=== PATIENT | male | born 1975 | race Caucasian/White ===

== ENCOUNTER 2025-05-19 05:08 | Inpatient (IN) | payer OTHER ==
[~2025-05-19] VITALS: Ht 185.4 cm; Wt 72.7 kg
[2025-05-19 06:19] LABS: PLATELET COUNT (AUTO) 191 K/uL (150-450); RED BLOOD CELL COUNT(AUTO) 3.61 MIL/uL (4.50-5.90); RED CELL DISTRIBUTION WIDTH 17.4 % (11.5-14.5); WHITE BLOOD COUNT (AUTO) 6.0 K/uL (4.5-11.0)
[2025-05-19] MEDS ORDERED: 0.9% SODIUM CHLORIDE 10 ML SYRINGE IVP PRN (06:30)
[2025-05-19] MEDS ORDERED: IOHEXOL 300 MG/ML 100 ML VIAL ONE (06:36)
[2025-05-19] MEDS ORDERED: SODIUM CHLORIDE 0.9% 0 ML ONE (06:36)
[2025-05-19 06:48] LABS: TROPONIN I-HIGH SENSITIVITY 5 ng/L (<76)
[2025-05-19 06:53] LABS: CALCIUM, TOTAL 8.7 mg/dL (8.8-10.5); CREATININE 0.85 mg/dL (0.60-1.30); GLOMERULAR FILTR. RATE CALC > 60 mL/min (>60); GLUCOSE,RANDOM 90 mg/dL (70-110); SODIUM SERUM 139 mmol/L (136-145); UREA NITROGEN, BLOOD 4 mg/dL (7-18)
[2025-05-19 07:00] LABS: ASPARTATE AMINOTRANSFERASE 61.0 U/L (15-37); TOTAL PROTEIN, SERUM 6.9 g/dL (6.4-8.2)
[2025-05-19] MEDS: CefTRIAXone 1 GM/DEXTROSE 50 ML IV ONE (07:09)
[2025-05-19] MEDS: SODIUM CHLORIDE 0.9% 2,150 ML IV ONE (07:09)
[2025-05-19 07:11] LABS: LACTIC ACID 1.7 mmol/L (0.4-2.0)
[2025-05-19] MEDS: ONDANSETRON HCL 4 MG/2 ML VIAL IVP ONE (07:12)
[2025-05-19 07:22] LABS: RBC MORPHOLOGY COMMENT ABNORMAL RBC MORPH
[2025-05-19 07:33] LABS: COVID AG,FIA SOURCE NASAL SWAB
[2025-05-19 08:12] LABS: APPEARANCE,URINE CLEAR (CLEAR); GLUCOSE, URINE (UA) NEGATIVE (NEGATIVE); LEUKOCYTE ESTERASE ,URINE NEGATIVE (NEGATIVE); NITRATE,URINE NEGATIVE (NEGATIVE); OCCULT BLOOD,URINE NEGATIVE (NEGATIVE); SPECIFIC GRAVITIY, URINE 1.008 (1.003-1.030)
[2025-05-19 08:20] LABS: ALCOHOL, URINE DRUG SCREEN POSITIVE (NEGATIVE); AMPHET/METH SCREEN,URINE NEGATIVE (NEGATIVE); BARBITURATE SCREEN, URINE NEGATIVE (NEGATIVE); CANNABINOID SCREEN,URINE POSITIVE (NEGATIVE); METHADONE SCREEN, URINE NEGATIVE (NEGATIVE)
[2025-05-19 08:25] LABS: SARS-COV2 (COVID) ANTIGEN,FIA Negative (Negative)
[2025-05-19 08:26] LABS: INFLUENZA TYPE A NEGATIVE FOR TYPE A (NEGATIVE); INFLUENZA TYPE B NEGATIVE FOR TYPE B (NEGATIVE)
[2025-05-19] MEDS: KETOROLAC TROMETHAMINE 30 MG/ML VIAL IVP ONE (08:46)
[2025-05-19 09:28] LABS: COCAINE SCREEN,URINE NEGATIVE (NEGATIVE)
[2025-05-19 11:25] LABS: PH,URINE DRUG SCREEN 6.5 (5.0-8.0)
[2025-05-19] MEDS ORDERED: MAGNESIUM HYDROXIDE SUSPENSION 30 ML UDCUP PO PRN (12:30)
[2025-05-19] MEDS ORDERED: ONDANSETRON HCL 4 MG/2 ML VIAL IVP PRN (12:30)
[2025-05-19] MEDS ORDERED: ZOLPIDEM TARTRATE 5 MG TABLET PO PRN (12:30)
[2025-05-19] MEDS ORDERED: ACETAMINOPHEN 325 MG TABLET PO PRN (12:30)
[2025-05-19 12:33] VITALS: BP 122/70; PULSE 85; RESP 12; TEMP 98.6; O2SAT 96
[2025-05-19] MEDS: MORPHINE SULFATE 2 MG/ML SYRINGE IVP PRN (12:57)
[2025-05-19 14:38] VITALS: BP 95/57; PULSE 83; RESP 17; TEMP 98.6; O2SAT 96
[2025-05-19 16:00] VITALS: BP 99/59; PULSE 73; RESP 11; O2SAT 96
[2025-05-19] MEDS: HEPARIN SODIUM,PORCINE 5,000 UNITS/ML VIAL SQ SCH (16:36)
[2025-05-19 17:00] VITALS: PULSE 85; RESP 16; TEMP 98.7; O2SAT 95
[2025-05-19 18:15] VITALS: BP 112/80; PULSE 62; RESP 18; TEMP 98.8; O2SAT 98
[2025-05-19] MEDS: FAMOTIDINE 20 MG TABLET PO SCH (20:39)
[2025-05-19] MEDS: DOCUSATE SODIUM 100 MG CAPSULE PO SCH (20:42)
[2025-05-19 20:43] VITALS: BP 100/68; PULSE 75; RESP 19; TEMP 98.6; O2SAT 97
[2025-05-20] VITALS: BP 96/60; PULSE 63; RESP 17; TEMP 98.4; O2SAT 97
[2025-05-20 04:47] VITALS: BP 95/63; PULSE 61; RESP 17; TEMP 98.4; O2SAT 99
[2025-05-20 07:35] LABS: PLATELET COUNT (AUTO) 171 K/uL (150-450); RED BLOOD CELL COUNT(AUTO) 3.34 MIL/uL (4.50-5.90); RED CELL DISTRIBUTION WIDTH 16.9 % (11.5-14.5); WHITE BLOOD COUNT (AUTO) 6.3 K/uL (4.5-11.0)
[2025-05-20 07:55] LABS: CALCIUM, TOTAL 8.2 mg/dL (8.8-10.5); CREATININE 0.56 mg/dL (0.60-1.30); GLOMERULAR FILTR. RATE CALC > 60 mL/min (>60); GLUCOSE,RANDOM 89 mg/dL (70-110); SODIUM SERUM 139 mmol/L (136-145); UREA NITROGEN, BLOOD 7 mg/dL (7-18)
[2025-05-20 08:03] VITALS: BP 106/95; PULSE 62; RESP 18; TEMP 98; O2SAT 98
[2025-05-20] MEDS: MULTIVITAMINS WITH MINERALS, THERAPEUTIC TABLET PO SCH (08:23)
[2025-05-20 13:00] VITALS: BP 102/80; PULSE 66; RESP 18; TEMP 98; O2SAT 97
[2025-05-20] MEDS ORDERED: FAMO20 PO (15:08)
[2025-05-20] MEDS ORDERED: DOCU-385 PO (15:08)
[2025-05-20] MEDS ORDERED: MULT-1303 PO (15:09)
[2025-05-20] MEDS ORDERED: MAGN-169 PO (15:11)
[2025-05-20] MEDS ORDERED: ACET-2247 PO (15:11)
== END 2025-05-20 14:30 | DRG 392 ==
LOC: EMS 05:08 → EDH 12:22 → ICU 12:25 → 5S 17:55
PROVIDERS: ADMIT Internal Medicine; ATTEND Internal Medicine
DX: R10.13 Epigastric pain (principal); K86.1 Other chronic pancreatitis; K86.3 Pseudocyst of pancreas; F10.10 Alcohol abuse, uncomplicated; Z20.822 Contact with and (suspected) exposure to COVID-19; D53.9 Nutritional anemia, unspecified; Z65.3 Problems related to other legal circumstances; Z91.041 Radiographic dye allergy status; Z91.013 Allergy to seafood
CPT/HCPCS: 71045; 74176; 74181; 80048; 80076; 80307; 81003; 83605; 83690; 84145; 84484; 85025; 85610; 86301; 87040; 87081; 87804; 93005; 96365; 96375; 99285; J0696; J1644; J1885; J2270; J2405; J7030; J7050; Q9967; 36415-L1; 36415-TC